=== PATIENT | male | born 2000 | race American Indian/Alaskan Native ===

== ENCOUNTER 2019-04-22 13:41 | Emergency (ER) | payer OTHER ==
[2019-04-22 14:41] VITALS: BP 138/99
--- NOTE | 2019-04-22 14:43 | Event Note ---
ED Screening Note Date of service: 04/22/19 Time: 14:40 ED Screening Note: 18 y o male presents to ED cc of right pinky pain and swelling x 2 days no injuries This initial assessment/diagnostic orders/clinical plan/treatment(s) is/are subject to change based on patients health status, clinical progression and re- assessment by fellow clinical providers in the ED. Further treatment and workup at subsequent clinical providers discretion. Patient/guardian urged not to elope from the ED as their condition may be serious if not clinically assessed and managed. Initial orders include: acc eval i/d
--- NOTE | 2019-04-22 18:52 | Emergency Department Report ---
ED General Adult HPI - General Chief complaint: Extremity Problem,Nontraumatic Stated complaint: RT PINKY SWOLLEN Time Seen by Provider: 04/22/19 18:17 Source: patient Mode of arrival: Ambulatory Limitations: No Limitations - History of Present Illness Initial comments: 18yo LIZETH presents with his father and states that he has been having R 5th finger swelling x 2 days. Pt verbalizes that he often bites his nails. He further states that his pain is an 8 of 10 on the pain scale. -: days(s) (2) Location: upper extremity (R hand) Radiation: non-radiation Severity scale (0 -10): 8 Quality: aching Consistency: intermittent Improves with: immobilization Worsens with: movement Associated Symptoms: denies other symptoms Treatments Prior to Arrival: none - Related Data Previous Rx's Medication Instructions Recorded Last Taken Type cephALEXin [Keflex] 500 mg PO Q12HR 10 Days #20 cap 04/22/19 Unknown Rx Allergies Allergy/AdvReac Type Severity Reaction Status Date / Time No Known Allergies Allergy Verified 04/22/19 13:42 ED Review of Systems ROS: Stated complaint: RT PINKY SWOLLEN Other details as noted in HPI Comment: All other systems reviewed and negative Musculoskeletal: as per HPI Skin: as per HPI ED Past Medical Hx - Past Medical History Previous Medical History?: No - Surgical History Past Surgical History?: No - Social History Smoking Status: Unknown if ever smoked Substance Use Type: None - Medications Home Medications: Home Medications Medication Instructions Recorded Confirmed Last Taken Type cephALEXin [Keflex] 500 mg PO Q12HR 10 Days #20 cap 04/22/19 Unknown Rx ED Physical Exam - General Limitations: No Limitations General appearance: alert, in no apparent distress - Head Head exam: Present: atraumatic, normocephalic - Eye Eye exam: Present: normal appearance, PERRL, EOMI - ENT ENT exam: Present: normal exam, normal orophraynx - Neck Neck exam: Present: normal inspection, full ROM. Absent: tenderness - Respiratory Respiratory exam: Present: normal lung sounds bilaterally. Absent: wheezes, rhonchi - Cardiovascular Cardiovascular Exam: Present: regular rate, normal rhythm, normal heart sounds - GI/Abdominal GI/Abdominal exam: Present: soft. Absent: distended, tenderness - Rectal Rectal exam: Present: deferred - Extremities Exam Extremities exam: Present: full ROM, normal capillary refill. Absent: normal inspection - Expanded Upper Extremity Exam Right Shoulder Exam: Present: normal inspection, full ROM. Absent: tenderness Upper Arm exam: Present: normal inspection, full ROM. Absent: tenderness Elbow exam: Present: normal inspection, full ROM. Absent: tenderness Forearm Wrist exam: Present: normal inspection, full ROM. Absent: tenderness Hand Wrist exam: Present: full ROM, tenderness, swelling (swelling and tenderness present at the nailbed of the R 5th finger), other (casting inspector strength intact) Neuro motor exam: Present: wrist extension intact, thumb opposition intact, thumb IP flexion intact Neurosensory exam: Present: 2-point discrimination, radial nerve intact Vascular: Present: normal capillary refill - Back Exam Back exam: Present: normal inspection, full ROM. Absent: tenderness - Neurological Exam Neurological exam: Present: alert, altered, oriented X3 - Psychiatric Psychiatric exam: Present: normal affect, normal mood. Absent: depressed - Skin Skin exam: Present: warm (warmth noted at the nailbed of the R fifth finger), dry, intact ED Course Vital Signs 04/22/19 14:39 Temperature 98.6 F Pulse Rate 55 L Respiratory 18 Rate Blood Pressure 138/99 O2 Sat by Pulse 100 Oximetry ED Medical Decision Making - Medical Decision Making Pt was instructed to take antibiotics as directed, perform warm Epsom water soaks twice a day for 15-20 minutes, and continue OTC NSAIDs for pain. He was told to f/u with his PCP for re-evaluation in 3-5 days and see ER if symptoms worsen. Pt verbalized understanding and agreed with the plan of care. Critical care attestation.: If time is entered above; I have spent that time in minutes in the direct care of this critically ill patient, excluding procedure time. ED Disposition Clinical Impression: Cellulitis and abscess of finger, unspecified Disposition: DC-01 TO HOME OR SELFCARE Is pt being admited?: No Does the pt Need Aspirin: No Condition: Stable Instructions: Paronychia (ED) Additional Instructions: Pt was instructed to take antibiotics as directed, perform warm Epsom water soaks twice a day for 15-20 minutes, and continue OTC NSAIDs for pain. He was told to f/u with his PCP for re-evaluation in 3-5 days and see ER if symptoms worsen. Pt verbalized understanding and agreed with the plan of care. Prescriptions: cephALEXin [Keflex] 500 mg PO Q12HR 10 Days #20 cap Referrals: PRIMARY CARE, [Primary Care Provider] - 3-5 Days [facility] [Provider Group] - 3-5 Days
== END 2019-04-22 19:29 | disposition home or self-care (01) ==
LOC: ED 13:41
DX: L03.011 Cellulitis of right finger (principal); L02.511 Cutaneous abscess of right hand; Z79.899 Other long term (current) drug therapy
CPT/HCPCS: 99281

== ENCOUNTER 2020-10-21 03:02 | Emergency (ER) | payer OTHER ==
--- NOTE | 2020-10-21 04:28 | Emergency Department Report ---
ED Lower Extremity HPI - General Chief Complaint: Extremity Problem,Nontraumatic Stated Complaint: RT LEG PAIN Time Seen by Provider: 10/21/20 03:49 Source: patient Mode of arrival: Ambulatory Limitations: No Limitations - History of Present Illness MD Complaint: hip injury -: Gradual, Sudden, days(s) (2) Injury: Hip: Right Severity: mild Improves With: nothing Worsens With: weight bearing, movement, palpation Associated Symptoms: able to partially bear weight - Related Data Previous Rx's Medication Instructions Recorded Last Taken Type cephALEXin [Keflex] 500 mg PO Q12HR 10 Days #20 cap 04/22/19 Unknown Rx Ketorolac [Toradol] 10 mg PO Q6H PRN #14 tablet 10/21/20 Unknown Rx Allergies Allergy/AdvReac Type Severity Reaction Status Date / Time No Known Allergies Allergy Verified 04/22/19 13:42 ED Review of Systems ROS: Stated complaint: RT LEG PAIN Other details as noted in HPI Comment: All other systems reviewed and negative ED Past Medical Hx - Past Medical History Previous Medical History?: No - Surgical History Past Surgical History?: No - Social History Smoking Status: Never Smoker Substance Use Type: Marijuana - Medications Home Medications: Home Medications Medication Instructions Recorded Confirmed Last Taken Type cephALEXin [Keflex] 500 mg PO Q12HR 10 Days #20 cap 04/22/19 Unknown Rx Ketorolac [Toradol] 10 mg PO Q6H PRN #14 tablet 10/21/20 Unknown Rx ED Physical Exam - General Limitations: No Limitations General appearance: alert, in no apparent distress - Head Head exam: Present: atraumatic, normocephalic - Eye Eye exam: Present: normal appearance, PERRL, EOMI Pupils: Present: normal accommodation - ENT ENT exam: Present: normal exam, normal orophraynx, mucous membranes moist - Neck Neck exam: Present: normal inspection, full ROM - Respiratory Respiratory exam: Present: normal lung sounds bilaterally. Absent: respiratory distress - Cardiovascular Cardiovascular Exam: Present: regular rate, normal rhythm. Absent: systolic murmur, diastolic murmur, rubs, gallop - GI/Abdominal GI/Abdominal exam: Present: soft, normal bowel sounds - Rectal Rectal exam: Present: deferred - Extremities Exam Extremities exam: Present: normal inspection, tenderness, normal capillary refill - Expanded Lower Extremity Exam Right Hip exam: Present: tenderness (Internal rotation of the hip. With palpation of the greater trochanteric region. In the iliac crest) Upper Leg exam: Present: normal inspection Knee exam: Present: normal inspection Ankle exam: Present: normal inspection Foot/Toe exam: Present: normal inspection Neuro vascular tendon exam: Present: no vascular compromise - Back Exam Back exam: Present: normal inspection - Neurological Exam Neurological exam: Present: alert, oriented X3 - Psychiatric Psychiatric exam: Present: normal affect, normal mood - Skin Skin exam: Present: warm, dry, intact, normal color. Absent: rash ED Course Vital Signs 10/21/20 10/21/20 03:11 05:00 Temperature 98.5 F Pulse Rate 60 73 Respiratory 18 15 Rate Blood Pressure 123/83 O2 Sat by Pulse 100 99 Oximetry Critical care attestation.: If time is entered above; I have spent that time in minutes in the direct care of this critically ill patient, excluding procedure time. ED Disposition Clinical Impression: Hip pain, Lower back pain Disposition: - TO HOME OR SELFCARE Is pt being admited?: No Does the pt Need Aspirin: No Condition: Stable Instructions: Hip Pain, How to Use Cold Therapy, [id number], What You Need to Know About Chronic Back Pain, Musculoskeletal Pain, Joint Pain Prescriptions: Ketorolac [Toradol] 10 mg PO Q6H PRN #14 tablet PRN Reason: Pain Referrals: PRIMARY CARE, [Primary Care Provider] - 3-5 Days SUNSHINE DUQUE MD [Staff Physician] - 3-5 Days Forms: Work/School Release Form(ED)
== END 2020-10-21 05:00 | disposition home or self-care (01) ==
LOC: ED 03:02
CPT/HCPCS: 99282